=== PATIENT | female | born 1940 | race Caucasian/White ===

== ENCOUNTER 2019-03-03 12:00 | Outpatient (CLI) | payer MEDICARE ==
[~2019-03-03] VITALS: Ht 160 cm; Wt 57.7 kg
[2019-03-03] MEDS ORDERED: BISO1TAB37 PO (12:20)
[2019-03-03] MEDS ORDERED: AMLO5TAB9 PO (12:20)
[2019-03-03] MEDS ORDERED: FURO20TA4 PO (12:20)
[2019-03-03] MEDS ORDERED: BUPR300T43 PO (12:20)
[2019-03-03] MEDS ORDERED: RANI300T4 PO (12:20)
[2019-03-03] MEDS ORDERED: ENAL20TA74 PO (12:20)
[2019-03-03] MEDS ORDERED: ATOR40TA PO (12:20)
[2019-03-03] MEDS ORDERED: LEVO5TAB28 PO (12:20)
[2019-03-03] MEDS ORDERED: POTA-51 PO (12:20)
[2019-03-03] MEDS ORDERED: OLOP2.5D OU (12:20)
== END 2019-03-03 12:23 | disposition home or self-care (01) ==
LOC: PREOP 12:00
PROVIDERS: ATTEND Internal Medicine
DX: Z01.818 Encounter for other preprocedural examination (principal)

== ENCOUNTER 2019-03-06 07:48 | Day surgery (SDC) | payer MEDICARE ==
--- NOTE | 2019-02-27 19:03 | HISTORY AND PHYSICAL ---
DATE OF SERVICE: COLONOSCOPY HISTORY AND PHYSICAL HISTORY OF PRESENT ILLNESS: The patient is a 79-year-old white female referred by Dr. Ojeda for screening colonoscopy. I performed one other colonoscopy on her over 10 years ago, at which time she had no evidence for neoplasia. She has had several recent episodes of bright red blood per rectum without associated pain at the time of stool passage. There were small volumes. There was no bowel habit change or reported constipation. This last occurred five days ago and she noted approximately about three stools prior to that. She reports that she has been under baseline level of energy and has had no abdominal pain. Denies melena or bowel habit change and there was no associated tenesmus, chills or fever. She states that her weight has been stable. PAST MEDICAL HISTORY: Significant for hypertension and hyperlipidemia. She has had some plaque formation noted on imaging studies on the aorta, but no history of acute coronary syndrome or CVA and no history of peripheral vascular disease. MEDICATIONS ON ADMISSION: Include amlodipine 5 mg daily, bisoprolol-HCT 10/6.25, enalapril 20 mg, furosemide 20 mg, Klor-Con 40 mEq daily, Tamela 180 mg daily, ranitidine 300 mg at bedtime, atorvastatin 40 mg daily and Pataday eye drops as needed. She had been on aspirin in the past, but reports, she stopped this one month ago after seeing reports about its ineffectiveness for primary prevention. Lastly, fluticasone nasal spray one spray both sides twice a day. PAST SURGICAL HISTORY: She underwent total abdominal hysterectomy for benign reasons in 1969. She then underwent bilateral salpingo-oophorectomy in 2003 again for benign reasons and she had a left total hip replacement in 2005 and right total hip replacement for degenerative changes in 2010. FAMILY HISTORY: She is not aware of any family history for GI tract malignancy. SOCIAL HISTORY: She has a distant past smoking history, but quit many years ago with no history of alcohol consumption. PHYSICAL EXAMINATION: GENERAL: Reveals a well-appearing white female, who appeared to be in no acute distress. VITAL SIGNS: Weight was 127.2 pounds, blood pressure 158/70 and heart rate 60 and regular. HEENT: Examination was unremarkable. There is no evidence for pallor. Oral cavity reveals Mallampati class 1 configuration. NECK: Revealed no JVD, adenopathy or bruits. CHEST: Clear to auscultation. CARDIOVASCULAR: Regular rate and rhythm without murmur, S3 or S4. ABDOMEN: Soft, supple without mass, organomegaly or tenderness. Bowel sounds are positive. No bruits are noted. EXTREMITIES: Reveal no cyanosis, clubbing or edema. ASSESSMENT AND PLAN: The patient is set for screening colonoscopy on 03/06. Preop instructions were given and the questions were answered. The patient was advised to continue to abstain from aspirin and nonsteroidal medications utilizing Tylenol as needed. Electronic medical record was reviewed and the patient's questions were answered. I thank you for the referral of this pleasant lady. Job ID: [id number] DocumentID: [id number] Dictated Date: 02/24/2019 09:20:52 Cloth Bin Packer Date: 02/24/2019 09:41:55 Dictated By: JUDIT GARCIA MD
[~2019-03-06] VITALS: Ht 160 cm; Wt 57.7 kg
[~2019-03-06 07:48] MED LIST: AMLO5TAB9 PO; ATOR40TA PO; BISO1TAB37 PO; BUPR300T43 PO; ENAL20TA74 PO; FURO20TA4 PO; LEVO5TAB28 PO; OLOP2.5D OU; POTA-51 PO; RANI300T4 PO
--- OUTSIDE RECORDS SUMMARY | 2019-03-06 07:58 | XMS REPORT | Continuity of Care Document ---
Author Organization Unknown Address Unknown Allergies There is no data. Medications There is no data. Problems Date Dx Coded Attending Type Code Diagnosis Diagnosed By 06/17/2015 Ot 241.0 06/17/2015 Ot 785.6 06/22/2015 KATERYNA HONEYCUTTP Ot 721.3 06/28/2015 KATERYNA HONEYCUTT CUSTODIAL WORKER Ot 721.3 06/29/2015 KATERYNA HONEYCUTT CUSTODIAL WORKER Ot 721.3 07/01/2015 KATERYNA HONEYCUTT CUSTODIAL WORKER Ot 721.3 07/07/2015 KATERYNA HONEYCUTTP Ot 721.3 07/14/2015 KATERYNA HONEYCUTT CUSTODIAL WORKER Ot 721.3 11/09/2015 KATERYNA HONEYCUTT CUSTODIAL WORKER Ot I70.0 11/10/2015 KATERYNA HONEYCUTT CUSTODIAL WORKER Ot I70.0 Procedures There is no data. Results There is no data. Encounters ACCT No. Visit Date/Time Discharge Status Pt. Type Provider Facility Loc./Unit Complaint [id number] 10/18/2015 08:54:00 10/18/2015 23:59:59 CLS Outpatient KATERYNA HONEYCUTT [facility] [id number] 06/17/2015 13:57:00 06/17/2015 23:59:59 CLS Outpatient KATERYNA HONEYCUTTP [facility] [id number] 03/06/2019 08:30:00 PEN Preadmit RADHA SALDIVAR, JUDIT Burrows [facility]O SCREENING [id number] 09/12/2011 13:16:00 Document Registration
--- NOTE | 2019-03-06 08:01 | Pre-Op Note & Conscious Sedat ---
Pre-Operative Progress Note H&P Reviewed The H&P was reviewed, patient examined and no changes noted. Date H&P Reviewed: March 06, 2019 Time H&P Reviewed: 08:01 Conscious Sedation Pre-Proced ASA Score 2 For ASA 3 and 4: Consider anesthesia and medical clearance. Also, for patients with a history of failed moderate sedation consider anesthesia. Airway Lungs Heart ASA score ASA 1: a normal healthy patient ASA 2: a patient with a mild systemic disease (mid diabetes, controlled hypertension, obesity ASA 3: a patient with a severe systemic disease that limits activity (angina , COPD, prior Myocardial infarction) ASA 4: a patient with an incapacitating disease that is a constant threat to life (CHF, renal failure) ASA 5: a moribund patient not expected to survive 24 hrs. (ruptured aneurysm) ASA 6: a declared brain- patient whose organs are being harvested. For emergent operations, add the letter E after the classification Mallampati Classification Grade 2 Sedation Plan Analgesia, Amnesia, Plan communicated to team members, Discussed options with patient/fam, Discussed risks with patient/fam The patient is an appropriate candidate to undergo the planned procedure, sedation, and anesthesia. The patient immediately re-assessed prior to indication. JUDIT GARCIA MD March 06, 2019 08:01
[2019-03-06] MEDS ORDERED: D5 LR IV SOLUTION 1,000 ML IV STA (08:16)
[2019-03-06] MEDS ORDERED: D5 LR IV SOLUTION 1,000 ML IV ONE (08:23)
[2019-03-06] MEDS ORDERED: MIDAZOLAM 2 MG/2 ML (VERSED) VIAL IVP ONE (08:30)
[2019-03-06] MEDS ORDERED: fentaNYL INJECTION 100 MCG/2 ML AMP IVP ONE (08:30)
[2019-03-06] MEDS ORDERED: MIDAZOLAM 2 MG/2 ML (VERSED) VIAL ONE ×2 (08:58)
[2019-03-06] MEDS ORDERED: LIDOCAINE JELLY 2% 6 ML SYRINGE ONE (08:58)
[2019-03-06] MEDS ORDERED: fentaNYL INJECTION 100 MCG/2 ML AMP ONE ×2 (08:58→09:19)
[2019-03-06 09:05] VITALS: BP 149/61
[2019-03-06 09:50] VITALS: BP 140/64
[2019-03-06] MEDS ORDERED: LIDOCAINE JELLY 2% 6 ML SYRINGE TOP ONE (10:00)
[2019-03-06 10:20] VITALS: BP 152/62
[2019-03-06 10:50] VITALS: BP 152/62
--- NOTE | 2019-03-06 20:25 | OPERATIVE REPORT ---
DATE OF SERVICE: 03/06/2019 COLONOSCOPY SUMMARY INDICATION FOR THE PROCEDURE: Screening colonoscopy. DESCRIPTION OF PROCEDURE: The patient was placed in the left lateral decubitus position. Prior to undergoing colonoscopy, digital rectal evaluation was performed. Anal sphincter tone was normal and the perianal reflexes were intact. No abnormalities noted on digital inspection of the anal canal or distal rectal vault. The colonoscope was then inserted into the rectum and under visualization advanced to the cecum. The cecum was identified by identification of the ileocecal valve and cecal strap. Photographic documentation was obtained. Careful inspection was made as the colonoscope was withdrawn. The patient had an irritable bowel type response to air insufflation and colonic manipulation. FINDINGS: There was no evidence for internal or external hemorrhoids. The rectum was unremarkable. The distal and mid sigmoid colon were unremarkable. Proximal sigmoid colon, descending colon revealed moderate number of small to medium size diverticulum without evidence for diverticulitis. There were also a fair number of venous malformations present with no evidence for blood in the colon. The splenic flexure, transverse colon, hepatic flexure, ascending colon and cecum were unremarkable with no evidence for neoplasia on today's evaluation. No evidence for arterial malformations were noted. ASSESSMENT AND PLAN: No evidence for neoplasia was identified on today's study. Considering age and the fact this is her second unremarkable colonoscopy, we would not advocate future screening colonoscopy. She does have mild to moderate diverticular disease involving the proximal sigmoid colon and descending colon without evidence for diverticulitis. There were a fair number of venous malformations which tend to be a much lower bleeding risk with no evidence for arterial malformation present in the sigmoid and descending colon as well. I thank you for the referral of this pleasant lady. Job ID: [id number] DocumentID: [id number] Dictated Date: 03/06/2019 10:00:58 Inspector Wreath Date: 03/06/2019 20:25:08 Dictated By: JUDIT GARCIA MD
== END 2019-03-06 10:50 | disposition home or self-care (01) ==
LOC: ENDO 07:48
PROVIDERS: ATTEND Internal Medicine
DX: Z12.11 Encounter for screening for malignant neoplasm of colon (principal); K57.30 Diverticulosis of large intestine without perforation or abscess without bleeding; K55.20 Angiodysplasia of colon without hemorrhage; I10 Essential (primary) hypertension; E78.5 Hyperlipidemia, unspecified; Z87.891 Personal history of nicotine dependence; Z79.899 Other long term (current) drug therapy

== ENCOUNTER → 2019-11-19 | Outpatient (CLI) | payer MEDICARE, BC ==
--- NOTE | 2019-11-19 14:56 | Diagnostic Imaging Report ---
INDICATION: Right rib pain. Time of exam 1:47 PM No displaced rib fractures detected. No parenchymal contusion, effusion or pneumothorax is detected. IMPRESSION: No acute feature is detected. Dictated by: Dictated on workstation # [id number]
== END ==
LOC: RAD 13:34 → MERGE 13:34
PROVIDERS: ATTEND Nurse Practitioner Family
DX: R07.81 Pleurodynia (principal)
CPT/HCPCS: 71100